=== PATIENT | female | born 1950 | race Caucasian/White ===

== ENCOUNTER → 2018-03-01 06:46 | Outpatient (CLI) | payer MEDICARE, OTHER, SELFPAY ==
[2018-02-15 15:24] VITALS: BMI 17.2
--- NOTE | 2018-03-01 06:50 | ECHOD_ITS ---
Reason For Study: Palpitations Procedure This was a 2D Doppler, Color Flow transthoracic echocardiogram. The exam was of adequate technical quality. Exam performed in department. Left Ventricle Normal LV size. Left ventricular systolic function is normal. The estimated ejection fraction is 55 %. Septal motion consistent with IVCD. No evidence for diastolic dysfunction. No regional wall motion abnormalities noted. Right Ventricle Normal RV size. Normal systolic function. Atria The left atrium is mildly enlarged. The right atrium is mildly enlarged. No doppler evidence for ASD. Bubble contrast study negative for right to left interatrial shunt. Mitral Valve There is mild mitral annular calcification. Mild diffuse mitral valve thickening. Mild (1+) mitral valve insufficiency. Tricuspid Valve Poor coaptation of the tricuspid valve leaflets. Moderate (2+) tricuspid valve insufficiency. Right ventricular systolic pressure estimated to be 27 mmHg. Aortic Valve Normal aortic valve. Mild diffuse aortic valve thickening. Pulmonic Valve The pulmonic valve is not well visualized. Trivial pulmonic valve insufficiency. Great Vessels Normal sized aortic root. Pericardium/Pleural No pericardial effusion. Medication Performed a rapid injection of agitated mix of 9 cc saline and 1cc air to assess for atrial septal defect. MMode/2D Measurements & Calculations LVIDd: 4.0 cm IVSd: 0.74 cm Ao root diam: 3.5 cm LVIDs: 2.7 cm LVPWd: 0.84 cm LA dimension: 2.6 cm RVDd: 3.2 cm FS: 32.7 % LAV(MOD-sp4): 55.3 ml LVAd ap4: 24.1 cm2 SV(MOD-sp4): 39.4 ml EDV(MOD-sp4): 70.2 ml EDV(sp4-el): 72.7 ml LVAs ap4: 14.0 cm2 ESV(MOD-sp4): 30.8 ml ESV(sp4-el): 31.8 ml EF(MOD-sp4): 56.1 % EF(sp4-el): 56.3 % SV(sp4-el): 40.9 ml LA A4 area: 18.9 cm2 RA A4 area: 16.5 cm2 Time Measurements MV dec time: 0.18 sec Doppler Measurements & Calculations MV E max mg: 65.1 cm/sec Lat Peak E' Mg: 8.9 cm/sec Med Peak E' Mg: 6.3 cm/sec MV A max mg: 81.7 cm/sec E/E' lat: 7.3 E/E' med: 10.4 MV E/A: 0.80 MV V2 max: 113.0 cm/sec MV P1/2t max mg: 92.5 cm/sec Ao V2 max: 131.6 cm/sec MV max P.1 mmHg MV P1/2t: 81.6 msec Ao max P.9 mmHg MV V2 mean: 61.9 cm/sec MV mean P.8 mmHg MV dec slope: 331.9 cm/sec2 MV V2 VTI: 25.6 cm MVA(P1/2t): 2.7 cm2 LV V1 max: 117.8 cm/sec PA V2 max: 87.6 cm/sec TR max mg: 245.5 cm/sec LV V1 max P.5 mmHg TR max P.1 mmHg Interpretation Summary Left ventricular systolic function is normal. The estimated ejection fraction is 55 %. Septal motion consistent with IVCD. The left atrium is mildly enlarged. The right atrium is mildly enlarged. There is mild mitral annular calcification. Mild diffuse mitral valve thickening. Mild (1+) mitral valve insufficiency. Poor coaptation of the tricuspid valve leaflets. Moderate (2+) tricuspid valve insufficiency. Mild diffuse aortic valve thickening. Trivial pulmonic valve insufficiency. Right ventricular systolic pressure estimated to be 27 mmHg. No evidence for diastolic dysfunction. Bubble contrast study negative for right to left interatrial shunt. Ordering Physician: Jayesh Green Referring Physician: Jayesh Green Performed By: Femi Middleton RCS
--- NOTE | 2018-03-01 19:31 | STRESSREP ---
Stress Test Report Date: 03/01/2018 Procedure: Pharmacologic stress nuclear imaging study Indications: Chest pain; abnormal ECG; left bundle branch block Consent: Per the patient Procedure: The patient underwent pharmacologic (Regadenoson) evaluation with a peak heart rate of 100 beats per minute (64 predicted maximal heart rate) and a peak blood pressure of 112/60 mmHg. The baseline ECG demonstrated Sinus rhythm with a left bundle branch block pattern . The peak pharmacologic ECG demonstrated Continued left bundle branch block pattern with no obvious ECG changes . There were no cardiac dysrhythmias pretest, during pharmacologic infusion, or recovery. There was no complaint of chest discomfort during pharmacologic infusion or recovery. The examination was discontinued secondary to completion of protocol. Impression: 1. Pharmacologic (Regadenoson) evaluation 2. Peak pharmacologic ECG with Continued left bundle branch block pattern with no obvious ECG changes . 3. There were no cardiac dysrhythmias pretest, during pharmacologic infusion, or recovery. 4. Nuclear images pending Myocardial perfusion imaging study: Technique: The patient was injected with 11.2 millicuries of technetium 99m Cardiolite and subsequently rest SPECT Cardiolite nuclear imaging was obtained in the horizontal long, vertical long, and short axis views. The patient underwent pharmacologic (Regadenoson) evaluation with a peak heart rate of 100 beats per minute (64 % percent predicted maximal heart rate) and a peak blood pressure of 112/16 mmHg. The patient was injected with 33.7 millicuries of technetium 99m Cardiolite and subsequently stress SPECT Cardiolite nuclear imaging was obtained in the horizontal long, vertical long, and short axis views. A gated Cardiolite study at peak stress was obtained. Interpretation: Rest and stress SPECT Cardiolite nuclear imaging status post realignment, normalization, and attenuation correction demonstrate relatively uniform tracer uptake and myocardial perfusion appearing within normal limits . There is end systolic thickening and brightening. The gated Cardiolite study demonstrates myocardial thickening and inward wall motion. The reported LVEF is 70 %. Impression: 1. Rest and stress SPECT Cardiolite nuclear imaging demonstrate relative uniform tracer uptake and myocardial perfusion appearing within normal limits. 2. The gated Cardiolite study reports an LVEF of 70 %. This note was generated with [employer] software. It may contain incorrect words, spelling, and punctuation that were not noted in checking the note before signing.
== END ==
PROVIDERS: Family Provider Internal Medicine; PCP Internal Medicine; Referring Provider Internal Medicine Cardiovascular Disease; Visit Provider Internal Medicine Cardiovascular Disease
DX: I44.7 Left bundle-branch block, unspecified (principal); R00.2 Palpitations; R94.31 Abnormal electrocardiogram [ECG] [EKG]
CPT/HCPCS: 78452; 93017; 93225; 93226; 93306; A9500; A4216; J2785

== ENCOUNTER → 2019-08-20 | Outpatient (CLI) | payer MEDICARE, OTHER, SELFPAY ==
[2019-03-06 10:24] VITALS: BMI 18.0
== END | disposition home or self-care (01) ==
LOC: PSN 10:48
PROVIDERS: PCP Internal Medicine; Referring Provider Internal Medicine Cardiovascular Disease; Visit Provider Internal Medicine Cardiovascular Disease
DX: R42 Dizziness and giddiness (principal); R55 Syncope and collapse; R00.2 Palpitations
CPT/HCPCS: 93225; 93226